=== PATIENT | female | born 2000 | race Two or more races ===

== ENCOUNTER 2025-05-25 10:53 | Emergency (ER) | payer MEDICAID, SELFPAY ==
[2025-05-25 11:04] VITALS: BP 127/83; PULSE 95; RESP 18; TEMP 37.4; O2SAT 97; BMI 45.6
--- NOTE | 2025-05-25 11:10 | EDNOTE_ITS ---
<Statement entered by Selina Martinez MD - 05/26/25 15:23> As co-signing physician, I was present and available for consult prn. I concur with the plan and care as documented by the midlevel provider. ED General RME/HPI General Chief complaint: Fever Stated complaint: Fever X 1 week, left flank pain, CAMPOS Time Seen by Provider: 05/25/25 11:09 Arrival date/time: 05/25/25 10:53 CC: 1 week of intermittent fevers, now noticed also painful urination denies cough nausea or vomiting also complaining of mild left flank pain. Last dose of Tylenol was at 6 AM today. Is awake alert oriented in mild discomfort no other complaints Related Data Previous Rx's ?Medication ?Instructions ?Recorded hydrocodone 5 mg-acetaminophen 325 1 tab PO BID PRN pa in #10 tabs 11/10/20 mg tablet (Ingleside) albuterol sulfate 90 mcg/actuation 2 puff inhalation Q 6H PRN 04/10/22 aerosol inhaler (Ventolin HFA) shortness of breath or wheezing #8.5 grams azithromycin 500 mg tablet See Rx Instructions PO .COM PLEX #6 04/10/22 tabs cyclobenzaprine 10 mg tablet 10 mg PO TID PRN muscle s pasm #14 12/18/22 tabs hydroxyzine HCl 50 mg tablet 50 mg PO Q6H PRN anxiety #20 tabs 09/02/23 aluminum-mag hydroxide-simethicone 5 ml PO TID PRN ind igestion #3,000 05/13/24 400 mg-400 mg-40 mg/5 mL oral susp mL (Mag-Al Plus Extra Strength) meloxicam 7.5 mg tablet 7.5 mg PO QDAY #10 tabs 05/12 Allergies Allergy/AdvReac Type Severity Reaction Status Date / Time ibuprofen (From Motrin) Allergy Severe Gastrointestinal Verified 05/25/25 10:58 Upset Review of Systems Review of Systems Narrative Review of Systems: GEN: + fever, no chills, no weight loss EYES: No discharge, no visual changes, no pain HEENT: No ear pain, no congestion, no sore throat PULM: No shortness of breath, no cough, no congestion CV: No chest pain, no dyspnea on exertion, no palpitations GI: No nausea, no vomiting, no diarrhea, +pain, no constipation : No frequency, no urgency, no dysuria MUSC/SKEL: No joint pain, no back pain SKIN: No rash PSYCH: No hallucinations, no depression HEME/LYMPH: No easy bleeding or bruising tendencies NEURO: No weakness, no headache Past Medical History Past Medical History CARDIAC: Negative Congestive Heart Failure RESPIRATORY: Negative Chronic Obstructive Pulmonary Disease (COPD) GENITOURINARY: Negative Renal Disease ENDOCRINE: Negative Diabetes Mellitus Type 1 or Diabetes Mellitus Type 2 Social History SMOKING STATUS: Never smoker ED Exam Narrative Physical exam: [General: Morbidly obese not in any acute distress Head normocephalic HEENT: Within acceptable limits Neck is supple nontender Chest equal chest rise nontender to palpation Respiratory: Clear to auscultation no wheezes crackles or rubs CV: Rate rhythm is regular no murmurs rubs or clicks Abdomen is grossly distended secondary to body habitus soft nontender no masses positive bowel sounds all 4 quadrants Back: No CVA tenderness no spinous process tenderness from cervical spine thoracic and lumbar spine Skin: Intact no petechiae rash induration ulceration or crepitus Extremities: Moving all extremity against resistance cap refill less than 2 seconds neurosensory intact Neuro: Awake alert oriented x3 Glascow coma 15 no focal deficits] Course Quality Measures none Orders Category Date Time Status CT abdomen pelvis wo con Stat Exams 05/25/25 13:19 Completed HCG Qualitative,Urine Stat Lab 05/25/25 11:40 Completed Influenza A & B Rapid Panel Stat Lab 05/25/25 11:09 Ordered Urinalysis, C/S if Indicated Stat Lab 05/25/25 11:40 Completed Vital Signs Vital signs: Vital Signs Temperature 99.3 F 05/25/25 11:04 Pulse Rate 95 05/25/25 11:04 Respiratory Rate 18 05/25/25 11:04 Blood Pressure 127/83 05/25/25 11:04 Pulse Oximetry (%) 97 05/25/25 11:04 Oxygen Delivery Method Room Air 05/25/25 11:04 Discharge Plan Plan Patient Disposition: HOME (Self Care) Patient condition on transfer: Stable Prescriptions/Referrals Prescriptions/Med Rec: New meloxicam 7.5 mg tablet 7.5 mg PO QDAY Qty: 10 0RF No Action hydrocodone-acetaminophen [Ingleside] 5-325 mg tablet 1 tab PO BID MDD 2 PRN (Reason: pain) Qty: 10 0RF albuterol sulfate [Ventolin HFA] 90 mcg/actuation HFA aerosol inhaler 2 puff inhalation Q6H PRN (Reason: shortness of breath or wheezing) Qty: 8.5 0RF azithromycin 500 mg tablet See Rx Instructions .ROUTE .COMPLEX Qty: 6 0RF Rx Instructions: take 500 mg today (day 1), then 250 mg for 4 days (days 2-5) cyclobenzaprine 10 mg tablet 10 mg PO TID PRN (Reason: muscle spasm) Qty: 14 0RF hydroxyzine HCl 50 mg tablet 50 mg PO Q6H PRN (Reason: anxiety) Qty: 20 0RF alum-mag hydroxide-simeth [Mag-Al Plus Extra Strength] 400-400-40 mg/5 mL suspension 5 ml PO TID PRN (Reason: indigestion) Qty: 3000 0RF Referrals: Ty Kingston PA-C [Primary Care Provider] - In 1 week Problem List Clinical Impression: Fever, Flank pain Patient/Caregiver Discharge Instructions Other Activity Instructions:: Take the medicine provided, do not take ibuprofen while taking this medicine. Follow-up with the [facility] if is worsening of symptoms return the emergency room medially for further evaluation. Education Materials: Abdominal Pain Print Language: Syriac Stand Alone Forms: Maisha Award Info., Patient Portal Info Letter, Work/School Release PA/BHUMI Supervising Physician PA/BHUMI Supervising Physician: Giuliano Dexter ENP [facility] Clinical Information Provided by patient Medical Records Reviewed [facility] Meds/Rx Considered, not Ordered None Labs/Rad/Tests considered, not Ordered None Chronic Illness/Social Conditions Add or document further as needed: Morbid obesity EKG EKG not done Lab Interpretation Lab(s) interpretation(s): Urine is negative, urine is negative Imaging Imaging interpretation: none Provider imaging interpretation(s): CT abdomen pelvis without contrast negative for any acute finding quires laura gent or immediate intervention. Medication Administration(s) none Diagnosis Differential diagnosis: Viral syndrome UTI pyelonephritis Dispositon Disposition: Discharge Home
[2025-05-25 11:52] LABS: Collection Type, Urine Clean Catch
[2025-05-25 12:13] LABS: HCG Qualitative,Urine Negative
[2025-05-25 12:47] LABS: Bilirubin,Urine Negative (Negative); Blood,Urine Negative (Negative); Clarity,Urine Clear (Clear/Hazy); Color,Urine Yellow (Lt Yel-Yel); Culture Indicated,Urine Not Indicated; Glucose, Urine Negative (Negative); Ketones,Urine Negative (Negative); Leukocyte Esterase,Urine Negative (Negative); Nitrite,Urine Negative (Negative); PH,Urine 6.5 (5.0-7.0); Protein,Urine Trace (Neg - Trace); RBC,Urine 1 /hpf (0-3); Specific Gravity,Urine 1.021 (1.001-1.035); Squamous Epithelial Cell,Urine 2 /hpf (0-5); Urobilinogen,Urine Negative mg/dL (0.0-1.0); WBC,Urine 1 /hpf (0-5)
--- NOTE | 2025-05-25 13:19 | XR_ITS ---
Examination: CT abdomen and pelvis without contrast. Coronal 3-D reconstructions. Sagittal 2-D reconstructions. Date and time of exam:June 04, 2025, 1431 hours INDICATIONS: Onset left flank pain and fever today CTDI: vol (mGy): 17 DLP: (mGycm): 1059 Technique: Axial images of the abdomen have been obtained, 3 mm slice thickness Intravenous contrast material has not been administered. Low dose protocols were performed. One or more of the following dose reduction techniques were used; automated exposure control, adjustment of the mA and/or KV according to patient size, use of iterative reconstruction technique. Findings: Severe diffuse fatty infiltration throughout the liver, no focal liver or splenic lesions No gallstones No pancreatic or adrenal mass No renal or ureteral calculi, no hydronephrosis Aorta normal size No bowel obstruction Tiny fat-containing umbilical hernia No pericecal inflammatory change No bladder mass or bladder calculi No pelvic mass IMPRESSION: No renal or ureteral calculi, no hydronephrosis Assessment for renal edema is difficult without intravenous contrast Negative for cystitis
== END 2025-05-25 16:12 | disposition home or self-care (01) ==
PROVIDERS: Registered Nurse General Practice; Emergency Provider Emergency Medicine; PCP Physician Assistant
DX: R50.9 Fever, unspecified (principal); R10.9 Unspecified abdominal pain
CPT/HCPCS: 74176; 81001; 81025; 87400; 87502; 99283